=== PATIENT | male | born 1945 | race Hispanic/Latino ===

== ENCOUNTER 2018-04-20 14:48 | Outpatient (CLI) | payer MEDICARE ==
--- NOTE | 2018-04-20 17:29 | RAD ---
FOUR VIEWS BILATERAL KNEES: 04/20/18 HISTORY: Knee pain for many years. FINDINGS: Standing frontal radiograph of bilateral knees demonstrates bilateral mild lateral compartment narrow ing and bilateral moderate/severe medial compartment narrowing. Lateral examination of the left knee demonstrates no knee joint effusion. There is mild left patellofemoral joint space narrowing and post erior patellar osteophyte formation. Lateral imaging of the right knee demonstrates a small right kne e joint effusion. There is mild to moderate patellofemoral joint space narrowing with posterior smith lar osteophyte formation. No acute fracture or dislocation on either side. IMPRESSION: Degenerative joint disease of bilateral knees as detailed above. POS: [facility]
== END 2018-04-20 14:49 | disposition home or self-care (01) ==
LOC: SCSRAD 14:48
PROVIDERS: ATTEND Family Medicine
DX: M17.0 Bilateral primary osteoarthritis of knee (principal)
CPT/HCPCS: 73565